=== PATIENT | female | born 1990 | race Caucasian/White ===

== ENCOUNTER → 2022-03-12 | Day surgery (SDC) | payer OTHER ==
[~2022-03-12] VITALS: Ht 167.6 cm; Wt 72.1 kg
[~2022-03-12] MED LIST: FEOSOL325 MG PO; IBUPROFEN800 M1 PO; ONDANSETRON ODT4 MG PO; PRENATAL FORMU1 EACH PO; UNISOM25 MG PO; VITAMIN B6100 MG/2.5 PO
[2022-03-12 13:45] LABS: HCT 36.2 % (37.0-47.0); HGB 12.3 g/dl (12.5-16.0); MCH 27.5 pg (25.0-31.0); MCV 80.8 fL (78.0-100.0); RBC 4.48 M/uL (4.20-5.40); RDW 14.6 % (11.5-14.0)
== END | disposition home or self-care (01) ==
LOC: FAS 12:49
PROVIDERS: Obstetrics & Gynecology
DX: O02.1 Missed abortion (principal); F41.9 Anxiety disorder, unspecified; F32.A Depression, unspecified
CPT/HCPCS: 36415; 86850; 86900; 86901; J2250; J2405; J2704; J3010; J7050; J7120